=== PATIENT | female | born 1995 | race Two or more races ===

== ENCOUNTER 2018-07-14 10:50 | Observation (INO) | payer MEDICAID, OTHER ==
[2018-07-14] MEDS ORDERED: PREN-153 OR (11:18)
== END 2018-07-14 12:15 | disposition home or self-care (01) | DRG 566 ==
LOC: LDRP 10:50
PROVIDERS: ADMIT Specialist; ATTEND Specialist
DX: O48.0 Post-term pregnancy (principal); Z3A.40 40 weeks gestation of pregnancy
CPT/HCPCS: 76818; G0378; 59025; 81002

== ENCOUNTER 2018-07-16 15:28 | Observation (INO) | payer MEDICAID ==
[~2018-07-16 15:28] MED LIST: PREN-153 OR
== END 2018-07-16 16:40 | disposition home or self-care (01) | DRG 566 ==
LOC: LDRP 15:28
PROVIDERS: ADMIT Specialist; ATTEND Specialist
DX: O48.0 Post-term pregnancy (principal); Z3A.40 40 weeks gestation of pregnancy
CPT/HCPCS: 59025; 76818; 81002; G0378